=== PATIENT | female | born 1960 | race Caucasian/White ===

== ENCOUNTER → 2019-01-30 | Outpatient (CLI) | payer OTHER | LOC: ULTRA 14:30 | DX: Z01.818 Encounter for other preprocedural examination (principal); M79.89 Other specified soft tissue disorders ==

== ENCOUNTER 2019-03-19 05:45 | Observation (INO) | payer OTHER ==
[2019-03-12 13:21] LABS: URINE BILIRUBIN NEGATIVE (Negative); URINE BLOOD NEGATIVE (Negative); URINE CLARITY CLEAR; URINE COLOR YELLOW; URINE GLUCOSE-RANDOM* NEGATIVE (Negative); URINE KETONES NEGATIVE (Negative); URINE LEUKOCYTES-REFLEX NEGATIVE (Negative); URINE NITRITE-REFLEX NEGATIVE (Negative); URINE PROTEIN (DIPSTICK) NEGATIVE (Negative); URINE SPECIFIC GRAVITY 1.015 (1.005-1.035); URINE UROBILINOGEN 0.2 E.U./dl (0.2-1.0)
[2019-03-12 13:22] LABS: HEMATOCRIT 40.8 % (37.0-47.0); HEMOGLOBIN 13.8 gm/dL (12.0-15.0); MCH 29.3 pg (26.0-34.0); MCHC 33.8 g/dL (28.0-37.0); MCV 86.9 fL (80.0-100.0); RBC 4.7 mil/uL (4.20-5.00); RDW 13.9 % (10.5-14.5); WBC 7.6 thou/uL (4.0-11.0)
[2019-03-12 13:36] LABS: ALBUMIN 3.8 g/dL (3.4-5.0); CALCIUM 9.2 mg/dL (8.5-10.1); CREATININE 0.9 mg/dL (0.6-1.0); POTASSIUM 3.9 mmol/L (3.5-5.1)
--- NOTE | 2019-03-13 07:55 | EKG ---
[place] [address] [facility] [place] [address] ELECTROCARDIOGRAM REPORT Name: NI LAWS Room #: PRE IN [facility]#: [id number] ������������������ Admission: ������������������ Attend Phys: Shaun Rey MD Discharge: ������������������ Date of : 60 Report #: [id number] ����������������������������������������������������������������� [id number] THIS REPORT FOR: //name// [facility] Test Date: 2019-03-12 Test Time: 13:19:50 Pat Name: NI LAWS Department: Room: Gender: F Sterile Tech: azar : 1960 Requested By: Shaun Rey Order Number: [id number] MD: Bc Jason Measurements Intervals [place] Rate: 74 P: 61 KS: 178 QRS: 8 QRSD: 94 T: 29 QT: 379 QTc: 421 Interpretive Statements Sinus rhythm Normal tracing No previous ECG available for comparison Electronically Signed On 03-13-2019 7:55:47 CDT by Bc Jason [email or web address] ��������������������������������������������� <ELECTRONICALLY SIGNED> ���������������������������������������� By: Bc Jason MD, [facility] ��������������������������������������������� 03/13/19 0755 1319 1319 Bc Jason MD, FACC /EPI
[~2019-03-19] VITALS: Ht 160 cm; Wt 77.9 kg
--- NOTE | ~2019-03-19 | O ---
[facility] [place] [address] OPERATIVE REPORT Name: NI LAWS Room #: 449-I [facility] M..#: [id number] Admission: 03/31/19 ������������������ Attend Phys: Shaun Rey MD Discharge: ������������������ Date of : 60 Report #: [id number] THIS REPORT FOR: //name// CC: Lavonne Rey DATE OF SERVICE: 03/31/2019 SERVICE: Orthopedics. FACILITY: [facility]. SURGEON: Shaun Rey M.D. DRIVER/REFUSE COLLECTOR: Simi Pryor NP. PREOPERATIVE DIAGNOSES: 1. Right knee pain. 2. Right knee medial compartment osteoarthritis. POSTOPERATIVE DIAGNOSES: 1. Right knee pain. 2. Right knee medial compartment osteoarthritis. PROCEDURES: 1. Right knee unicompartmental arthroplasty. 2. Computer navigated robotic-assisted arthroplasty. COMPLICATIONS: None. DRAINS: None. SPECIMENS: None. FINDINGS: Journey Oxinium size 2 femur with [employer]oyd [employer] ZUK, size 2 tibia and 9 mm poly. HISTORY: The patient is a 58-year-old female with history of persistent progressive right knee pain that was resulting in chronic pain, swelling and significant impact on her activities of daily living. We tried extensive amount of treatments including injections, physical therapy, rest, activity modification, viscosupplementation, oral medicines and modalities, all these unfortunately provided insufficient pain relief. She is the primary site head of her disabled son and so, we had multiple discussions preoperatively about the best treatment approach favoring a less invasive procedure with a faster recovery. Her preoperative imaging was indicative of medial compartment OA and [facility] [address] [place] [address] OPERATIVE REPORT Name: NI LAWS Room #: 449-I [facility] M.R.#: [id number] Admission: 03/31/19 ������������������ Attend Phys: Shaun Rey MD Discharge: ������������������ Date of : 60 Report #: [id number] she was having significant trouble secondary to the medial-sided symptoms, which was manifested by a significant amount of marrow edema of the medial tibial plateau on preoperative MRI. We had a discussion about total versus unicompartmental knee arthroplasty and agreed that we would favor uni unless there was a significant to sway otherwise. Risks, benefits, alternatives and indication of surgery discussed with her in detail. Risks include but not limited to pain, bleeding, infection, injury to nerves or blood vessels, persistent pain despite surgical intervention, need for further surgery including conversion to total knee arthroplasty, stiffness as well as complications related to anesthesia such as stroke, heart attack, pulmonary complications, thromboembolic disease. PROCEDURE IN DETAIL: After right lower extremity was correctly identified as the operative extremity, the patient was taken to the operating room where general anesthesia was induced without complication. She had preoperative regional nerve block that had been performed as well. Prophylactic antibiotics were administered at appropriate time. Right lower extremity was prepped and draped in standard sterile fashion. Timeout procedure performed. Standard anterior approach was made just medial off of midline. Then an arthrotomy was made allowing access to the medial compartment and the patellofemoral compartment was evaluated. The trochanter was completely normal. There was some chondromalacia of the proximal medial patella, which has been present for some time and had not been her primary pain generator. There were no kissing lesions in the patellofemoral joint and the lateral compartment was normal. The ACL was intact. Osteophytes removed off the knee compartment. was anterior medial specifically with significant eburnation of the cartilage on the femur. The [employer] computer-navigated robotic esol teacher assistant trackers were placed in the femur and the tibia and the guide pins for the monitoring placed in bicortically as well. Data points were taken and then the estimated resection was then performed with appropriate implant position and thickness based on the computer obtained information on the patient's alignment and bony anatomy. Bony resection was then performed. The knee was copiously irrigated. Trial implants were placed and then, the 9 mm trial poly was placed as was the 8 mm. The 9 mm fit better and should have better range of motion and gap balancing. Therefore, selected the final implants, removed the trials, copiously irrigated the knee and then cemented the implants into position. Excess cement was removed off of the tibia after placement of the tibial component and osteophytes had been removed out of the posterior compartment as well. The femoral component was then cemented into place. The 9 mm trial poly was placed and the knee was placed into extension while the cement cured, the periarticular injection cocktail was then infiltrated in the soft tissues around the medial compartment in a typical fashion. After the cement was cured, the knee was copiously irrigated. Additional excess cement was removed as needed and then, [address] [address] OPERATIVE REPORT Name: NI LAWS [id number] Admission: 03/31/19 ������������������ Attend Phys: Shaun Rey MD Discharge: ������������������ Date of : 60 Report #: [id number] the knee was taken through the range of motion and assessed for balancing and the 9 mm trial was appropriate and so, we selected a final 9 mm poly insert, which fit well and had a well-balanced knee. At this point, the knee was irrigated once more. One gram vancomycin powder was placed within the wound. The arthrotomy was closed with 0 Vicryl suture in [id number] fashion. Skin was closed with 2-0 Vicryl followed by running subcuticular 3-0 Monocryl and Dermabond. Sterile dressing was applied followed by compression stocking and a PolarCare device. The patient was then awakened from anesthesia and taken to recovery room in stable condition. No complications. All counts were reported as correct. ��������������������������������������������� ���������������������������������������� By: ��������������������������������������������� 1006 1048 Shaun Rey MD /anibal
[~2019-03-19 05:45] MED LIST: ASPIR 8181 MG PO; ATENOLOL 25MG T25 MG PO; CENTRUM SILVER1 EAC4 PO; LOVAZA1000 MG PO; MINOXIDIL2.5 MG PO; OMEPRAZOLE40 MG PO; VITAMIN D2000 UNIT PO; VITAMIN E400 UNIT PO; ZOCOR40 MG PO
[2019-03-31 14:36] VITALS: BP 137/75
[2019-03-31 20:55] VITALS: BP 116/60
[2019-03-31 22:05] VITALS: BP 121/66
[2019-03-31 23:00] VITALS: BP 95/63
[2019-04-01] VITALS: BP 89/56
[2019-04-01 01:00] VITALS: BP 91/52
--- NOTE | 2019-04-01 01:54 | NUR ---
PT. ARRIVED ON THE UNIT @2032. A&OX4 WITH C/O OF EYE PAIN. MEDS GIVEN FOR MANAGEMENT. [employer] ON RT KNEE INTACT. JOVANI HOSE AND SCDS IN PLACE. BED IN LOW POSITION AND FOOT ELEVATED. POC DONE WILL CONITNUE TO MONITOR
[2019-04-01 03:49] VITALS: BP 96/47
[2019-04-01 07:14] VITALS: BP 108/60
--- NOTE | 2019-04-01 11:33 | NUR ---
ASSUMED CARE AT 0700. PT IS A&OX4. DAUGHTER IS AT BEDSIDE. PT C/O OF MILD R KNEE PAIN. PT COMPLAINS OF PAIN 10/10 TO R EYE. SPOKE WITH HOSPITALIST COMPOSING ROOM MACHINIST APPRENTICE ABOUT THIS AND SHE ORDERED A SOFT EYE PATCH AND SOME NATURAL TEARS. PT ALREADY HAS EYE NUMBING DROP AND IS CURRENTLY TAKING PAIN MEDICATION POST R KNEE SURGERY. WILL CONTINUE TO MONITOR PAIN LEVEL. PT HAD ORDERED TO HAVE R THIGH HIGH JOVANI HOSE APPLIED. PT'S DAUGHTER APPLIED THIS TO PT. PT WALKED WITH PHYSICAL THERAPY AND PHYSICAL THERAPIST STATES PT IS SAFE FOR DISCHARGE HOME. AWAITING CALL BACK FROM ORTHOPEDIC PA FOR DISCHARGE ORDERS. WILL CONTINUE TO MONITOR PT.
--- NOTE | 2019-04-01 13:25 | NUR ---
INITIAL ASSESSMENT/DISCHARGE NOTE: Received consult due to pt needing a roller walker. SW reviewed chart and spoke with nursing and hospitalist. Pt is POD #1 right TKA. Pt is medically stable for discharge home today. Script written for walker. SW met with pt at bedside. Introduced role of SW. Pt is alert/orientated x 4. Pt reports she lives at home. Prior to admission, pt was independent with ADLs. No hx of HH services or SNF/Rehab placement. Pt's PCP is Dr. Lavonne Mora. SW discussed need for roller walker. No preference of DME voiced. SW notified [facility] liaison, who delivered walker to pt's room. Pt has transportation home. No additional SW needs identified at this time, but is available to assist should needs arise.
[2019-04-01 15:11] VITALS: BP 108/60
== END 2019-04-01 15:52 | disposition home or self-care (01) ==
LOC: PRE 05:45 → 4W 03-31 05:37 → TBA 03-31 05:37 → 4W 03-31 20:59 → ENTRNSPT 04-01 15:42 → EDTRNSPTSTS 04-01 15:46 → 4W 04-01 15:52
PROVIDERS: ADMIT Orthopaedic Surgery Sports Medicine
DX: M17.11 Unilateral primary osteoarthritis, right knee (principal); M25.561 Pain in right knee; H57.89 Other specified disorders of eye and adnexa; I95.9 Hypotension, unspecified; G43.909 Migraine, unspecified, not intractable, without status migrainosus; K21.9 Gastro-esophageal reflux disease without esophagitis; E78.5 Hyperlipidemia, unspecified; Z88.0 Allergy status to penicillin; Z88.5 Allergy status to narcotic agent; Z88.1 Allergy status to other antibiotic agents; Z88.2 Allergy status to sulfonamides; Z79.899 Other long term (current) drug therapy; Z98.890 Other specified postprocedural states
CPT/HCPCS: 10040; 50010; 50101; 50415; 50954; 51130; 51225; 51320; 52001; 52282; 53000; 53078; 53370; 54118; 56527; 56528; 57095; 57103; 57110; 57127; 57180; 62110; 62900; 70005

== ENCOUNTER → 2019-04-18 | Outpatient (CLI) | payer OTHER | LOC: ULTRA 14:41 | DX: M79.661 Pain in right lower leg (principal) ==